=== PATIENT | male | born 1990 | race Caucasian/White ===

== ENCOUNTER 2018-07-08 23:13 | Emergency (ER) | payer MEDICAID ==
[~2018-07-08] VITALS: Ht 167.6 cm; Wt 88.9 kg
[2018-07-08 23:17] VITALS: Ht 167.6 cm; Wt 88.9 kg
[2018-07-09 00:11] VITALS: BP 132/78
== END 2018-07-09 00:11 | disposition home or self-care (01) ==
LOC: ED 23:13
DX: L03.113 Cellulitis of right upper limb (principal)